=== PATIENT | female | born 1955 | race Caucasian/White ===

== ENCOUNTER 2022-08-05 08:15 | Emergency (ER) | payer MEDICARE ==
[~2022-08-05] VITALS: Ht 167.6 cm; Wt 95.0 kg
[2022-08-05] MEDS ORDERED: AMOX-117 PO (08:59)
[2022-08-05] MEDS ORDERED: amox tr/potassium clavulanate 875/125mg TAB PO ONE (09:00)
[2022-08-05 09:36] VITALS: BP 115/78
== END 2022-08-05 09:44 | disposition home or self-care (01) ==
LOC: ER 08:15
DX: H65.112 Acute and subacute allergic otitis media (mucoid) (sanguinous) (serous), left ear (principal); R05.9 Cough, unspecified; R50.9 Fever, unspecified; R09.81 Nasal congestion; I10 Essential (primary) hypertension; Z79.899 Other long term (current) drug therapy
CPT/HCPCS: 99284

== ENCOUNTER 2025-01-09 10:55 | Outpatient (CLI) | payer MEDICARE, MEDICAID ==
--- NOTE | 2025-01-09 12:02 | RADIOLOGY REPORT ---
Exam: CT CT ABDOMEN PELVIS History: HYDRONEPHROSIS,RULE OUT KIDNEY STONES Comparison Study: None Technique: Multidetector spiral CT of the abdomen and pelvis was performed from lung bases to pubic symphysis. Imaging was performed without IV contrast. Axial, coronal and sagittal multiplanar reform ats were obtained from the axial data set by the technologist. Radiation dose : Abdomen/Pelvis: CTDIvol 29 mGy, DLP 1458 mGy*cm. Findings: Evaluation of solid organs is limited due to lack of intravenous contrast use. Lung Bases: No acute or significant lung base finding. Normal heart size. No pleural or pericardial effusion. Liver: The liver is normal in size. No focal lesions. Gallbladder and biliary Tree: Gallbladder is surgically absent. Spleen: Unremarkable Pancreas: The pancreas is grossly normal in appearance. Adrenal Glands: Unremarkable Kidneys: Mild left hydronephrosis. No obstructing ureteral calculus identified. Extrarenal pelvis on the right. Bladder: Partially obscured by metallic artifact related to left hip arthroplasty. Bowel: The stomach is grossly normal in appearance. Small bowel and colon are normal in caliber and d istribution. Normal appendix is visualized in the right lower quadrant without findings of appendicit is. Ascites: Absent Lymphadenopathy: No mesenteric, retroperitoneal or periportal lymphadenopathy. Abdominal wall and Mesentery: Unremarkable. Vasculature: Abdominal endograft in place. Can not be evaluated without intravenous contrast. Pelvic Organs: Unremarkable Musculoskeletal: No aggressive focal bony lesions, acute fractures or dislocation. IMPRESSION: 1. No acute abdominal or pelvic findings. Mild left hydronephrosis without obstructing calculus ident ified. Limited evaluation of the pelvis. If concern persists consider further evaluation with CT urog leighann. Abdominal aortic endograft in place. Radiation optimization: All CT scans at this facility use at least one of these dose optimization chris hniques: Automated exposure control mA and/or kV adjustment per patient size (includes targeted exams where dose is matched to clinical indication) or iterative reconstruction. HS:Y
== END 2025-01-09 23:59 | disposition home or self-care (01) ==
LOC: RAD 10:55
PROVIDERS: ATTEND Nurse Practitioner Family
DX: N13.30 Unspecified hydronephrosis (principal); Z90.49 Acquired absence of other specified parts of digestive tract
CPT/HCPCS: 74176

== ENCOUNTER 2025-03-04 12:24 | Outpatient (CLI) | payer MEDICARE, MEDICAID ==
--- NOTE | 2025-03-04 15:41 | RADIOLOGY REPORT ---
INDICATION: HYDRONEPHROSIS UNSPECIFIED HYDRONEPHROSIS TYPE TECHNIQUE: Multiple real-time sonographic images of the kidneys and bladder were obtained. COMPARISON: None FINDINGS: The right kidney measures 10 cm in length, which is normal in size. There is normal echogen icity of the right kidney. No hydronephrosis. The left kidney measures 11 cm in length, which is normal in size. There is normal echogenicity of th e left kidney. No hydronephrosis. No large intraluminal masses are seen in the bladder. IMPRESSION: 1. Normal sonographic appearance of the kidneys. No hydronephrosis.
== END 2025-03-04 23:59 | disposition home or self-care (01) ==
LOC: RAD 12:24
PROVIDERS: ATTEND Nurse Practitioner Family
DX: N13.30 Unspecified hydronephrosis (principal)
CPT/HCPCS: 76770

== ENCOUNTER 2025-03-04 12:41 | Outpatient (CLI) | payer MEDICARE, MEDICAID ==
--- NOTE | 2025-03-04 13:23 | RADIOLOGY REPORT ---
EXAM: DI CHEST,TWO VIEWS CLINICAL HISTORY: Chest pain ACUTE PNEUMONIA COMPARISON: None TECHNIQUE: Frontal and lateral view of the chest was obtained FINDINGS: Lines and Tubes: None Lungs: Multifocal left lung consolidative opacities. Pleura: No effusion. No pneumothorax. Cardiomediastinal contours: Unremarkable Bones: No acute osseous abnormality. IMPRESSION: Multifocal left lung pneumonia. Recommend repeat imaging after the completion of treatment to ensure resolution.
== END 2025-03-04 23:59 | disposition home or self-care (01) ==
LOC: RAD 12:41
PROVIDERS: ATTEND Family Medicine
DX: J18.9 Pneumonia, unspecified organism (principal)
CPT/HCPCS: 71046

== ENCOUNTER 2025-04-05 08:31 | Outpatient (CLI) | payer MEDICARE, MEDICAID ==
--- NOTE | 2025-04-05 10:37 | RADIOLOGY REPORT ---
DI CHEST,TWO VIEWS CLINICAL HISTORY: L PNA COMPARISON: DI CHEST,TWO VIEWS on DOS: 03/04/25 TECHNIQUE: Frontal and lateral view of the chest was obtained FINDINGS: Lines and Tubes: None Lungs: No focal consolidation. Pleura: No effusion. No pneumothorax. Cardiomediastinal contours: Unremarkable Bones: No acute osseous abnormality. IMPRESSION: No acute cardiopulmonary disease.
--- NOTE | 2025-04-05 12:05 | RADIOLOGY REPORT ---
INDICATION: LLQ PAIN TECHNIQUE: Multiple real-time sonographic images of the abdomen were obtained. COMPARISON: None FINDINGS: The liver is homogenous in echogenicity. The liver measures 19cm. No intrahepatic biliary ductal dilatation is noted. Gallbladder surgically removed. Common bile duct measures 8 mm. The right kidney measures 11cm. No hydronephrosis. The left kidney measures 10cm. No hydronephrosis . The spleen measures 10cm, within normal limits. The echogenicity is within normal limits. The pancreas is not well visualized due to obscuration from bowel gas. The visualized portions of the IVC and aorta are grossly unremarkable. IMPRESSION: Normal exam of the abdomen.
== END 2025-04-05 23:59 | disposition home or self-care (01) ==
LOC: US 08:31
PROVIDERS: ATTEND Nurse Practitioner Family
DX: J18.9 Pneumonia, unspecified organism (principal); R10.32 Left lower quadrant pain; Z90.49 Acquired absence of other specified parts of digestive tract
CPT/HCPCS: 71046; 76700

== ENCOUNTER 2025-04-26 12:42 | Outpatient (CLI) | payer MEDICARE, MEDICAID ==
[~2025-04-26 12:42] MED LIST: iohexol 350 MG/ML 50ML vial IV ONE
--- NOTE | 2025-04-26 19:40 | RADIOLOGY REPORT ---
CTA ABDOMINAL AORTA WITH BILATERAL LOWER EXTREMITY RUNOFF WITH CONTRAST INDICATION: ABDOMINAL AORTIC ANEURYSM, WITHOUT RUPTURE, UNSPECIFIED COMPARISON: CT CT ABDOMEN PELVIS on DOS: 01/09/25 TECHNIQUE: Thin axial CT images of the abdomen and bilateral lower extremities are obtained in the early arterial phase after intravenous contrast administration. Coronal maximum intensity projection (MIP) images are provided. 3-D images of the abdominal aorta and bilateral lower extremity arteries were constructed on an independent workstation. Radiation optimization: All CT scans at this facilit y use at least one of these dose optimization techniques: Automated exposure control mA and/or kV adj ustment per patient size (includes targeted exams where dose is matched to clinical indication) or it erative reconstruction. RADIATION DOSE: CTDI: 24 mGy DLP: 1983 mGy-cm FINDINGS: AORTA: There is an abdominal aortic endograft extending from the level of the renal arteries to the distal a spect of bilateral common iliac arteries. The excluded aneurysm sac measures approximately 3.0 x 3.4 cm, unchanged from the most remote prior study on 01/09/2025. There is no contrast identified within the aneurysm sac on this single phase study. The celiac, SMA, and renal arteries are patent. There is 1 right renal artery. There is 1 left renal artery. The WILNER origin is occluded. The distal WILNER is p erfused through anatomic anastomosis. RIGHT LOWER EXTREMITY RUN-OFF: Common iliac: The graft component is widely patent External iliac: Patent without hemodynamically significant stenosis. Internal iliac: Patent without hemodynamically significant stenosis. COMIC BOOK ARTIST: Patent without hemodynamically significant stenosis. SFA: Patent without hemodynamically significant stenosis. Profunda Femoris: Patent without hemodynamically significant stenosis. Popliteal: There is a bypass graft from the proximal popliteal artery to the distal popliteal artery which appears widely patent. Anterior Tibial: The proximal portion is widely patent. The distal portion is insufficiently opacif ied to evaluate. Tibioperoneal Trunk: Widely patent. Peroneal: The proximal portion is widely patent. The distal portion is insufficiently opacified to evaluate. Posterior Tibial: The proximal portion is widely patent. The distal portion is insufficiently opaci fied to evaluate. Dorsalis Pedis: Insufficiently opacified to evaluate. The common and lateral plantar arteries are insufficiently opacified to evaluate. LEFT LOWER EXTREMITY RUN-OFF: Common iliac: The graft component is widely patent. External iliac: Patent without hemodynamically significant stenosis. Internal iliac: Patent without hemodynamically significant stenosis. COMIC BOOK ARTIST: Patent without hemodynamically significant stenosis. SFA: Patent without hemodynamically significant stenosis. Profunda Femoris: Patent without hemodynamically significant stenosis. Popliteal: Patent without hemodynamically significant stenosis. No aneurysm or abnormal medial deviat ion is noted. Anterior Tibial: The proximal portion is widely patent. The distal portion is insufficiently opacifi ed to evaluate. Tibioperoneal Trunk: Patent without hemodynamically significant stenosis. Peroneal: The proximal portion is widely patent. The distal portion is insufficiently opacified to e valuate. Posterior Tibial: The proximal portion is widely patent. The distal portion is insufficiently opacif ied to evaluate. Dorsalis Pedis: Insufficiently opacified to evaluate. The common and lateral plantar arteries are insufficiently opacified to evaluate. ADDITIONAL FINDINGS: There is minimal dependent atelectasis in the right lower lobe. There is no pleural effusion. There is no pericardial effusion. The spleen is not enlarged. The liver is normal in size and contour. Th e gallbladder is surgically absent. The pancreas is unremarkable. The adrenal glands are normal. T he kidneys enhance symmetrically. No solid renal mass is identified. There is no hydronephrosis of ei ther kidney. Severe streak artifact from the left hip prosthesis degrades evaluation of the pelvis. T he uterus and ovaries are grossly within normal limits. The appendix is normal. No free fluid is james ntified in the abdomen or pelvis. No pathologic lymphadenopathy is identified. There is extensive sig moid diverticulosis without evidence of diverticulitis. The colonic stool burden is small to moderat e. There is no distention of the small bowel. IMPRESSION: Infrarenal abdominal aortic bi-iliac endograft. No enlargement of the excluded aneurysm sac since the most remote prior study available for comparison. No type 1 or type 3 endoleak. Note that a type 2 e ndoleak cannot be excluded on this single early arterial phase study although it is unlikely given th e lack of aneurysm sac growth.
== END 2025-04-26 23:59 | disposition home or self-care (01) ==
LOC: RAD 12:42
PROVIDERS: ATTEND Surgery Vascular Surgery
DX: K57.30 Diverticulosis of large intestine without perforation or abscess without bleeding (principal); I71.40 Abdominal aortic aneurysm, without rupture, unspecified; I72.4 Aneurysm of artery of lower extremity; R19.5 Other fecal abnormalities
CPT/HCPCS: 75635; Q9967